=== PATIENT | male | born 1970 | race Caucasian/White ===

== ENCOUNTER 2016-09-30 19:17 | Emergency (ER) | payer OTHER ==
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
[2016-09-30] MEDS ORDERED: IBUPROFEN 600 MG TABLET (FP) PO ONE ×2 (19:30→19:38)
[2016-09-30 19:32] VITALS: BP 121/81; PULSE 69; TEMP 98.3; BMI 26.9
== END 2016-09-30 19:55 | disposition home or self-care (01) ==
LOC: FER 19:17
DX: S43.084A Other dislocation of right shoulder joint, initial encounter (principal); V19.9XXA Pedal cyclist (driver) (passenger) injured in unspecified traffic accident, initial encounter; Y93.89 Activity, other specified; Y92.9 Unspecified place or not applicable
CPT/HCPCS: 73000-TC-RT; 99281-25